=== PATIENT | female | born 1960 | race Two or more races ===

== ENCOUNTER 2025-01-01 21:28 | Inpatient (IN) | payer MEDICAID, MEDICARE ==
[~2025-01-01] VITALS: Ht 152.4 cm; Wt 71.7 kg
[2025-01-01] MEDS: IV NORMAL SALINE 1000 ML BAG IV ONE (23:00)
[2025-01-01 23:15] LABS: BASOPHILS % (AUTO) 0.4 % (0.0-2.0); EOSINOPHILS % (AUTO) 0.9 % (0.0-7.0); HEMOGLOBIN 11.5 g/dL (10.9-14.3); LYMPHOCYTES # (AUTO) 1.6 K/uL (0.8-4.8); LYMPHOCYTES % (AUTO) 27.4 % (20.5-51.5); MEAN CORPUSCULAR HEMOGLOBIN 34.2 uug (24.7-32.8); MEAN CORPUSCULAR HGB CONC 34 g/dL (32.3-35.6); MEAN CORPUSCULAR VOLUME 101.3 fL (75.5-95.3); MONOCYTES # (AUTO) 0.7 K/uL (0.1-1.30); MONOCYTES % (AUTO) 12.1 % (0.0-11.0); NEUTROPHILS # (AUTO) 3.4 K/uL (1.8-8.9); NEUTROPHILS % (AUTO) 59.2 % (38.5-71.5); PLATELET COUNT (AUTO) 272 K/uL (179-408); RED BLOOD CELL COUNT(AUTO) 3.36 MIL/uL (3.63-4.92); RED CELL DISTRIBUTION WIDTH 13.6 % (12.3-17.7); WHITE BLOOD COUNT (AUTO) 5.7 K/uL (3.8-11.8)
[2025-01-01 23:17] LABS: DIFFERENTIAL COMMENT 1
[2025-01-01] MEDS ORDERED: ACETAMINOPHEN 325 MG TABLET PO PRN (23:30)
[2025-01-01] MEDS ORDERED: MAGNESIUM HYDROXIDE 30 ML LIQUID UDC PO PRN (23:30)
[2025-01-01] MEDS ORDERED: REMEDY ESSENTIAL ZINC PASTE 113 GM TP PRN (23:30)
[2025-01-01] MEDS ORDERED: ONDANSETRON 4 MG/2 ML VIAL IV PRN (23:30)
[2025-01-01 23:38] LABS: CALCIUM 9.2 mg/dL (8.5-10.1); CARBON DIOXIDE 28 mmol/L (21-32); CHLORIDE 108 mmol/L (98-107); GLUCOSE 106 mg/dL (74-106); POTASSIUM 3.8 mmol/L (3.5-5.1); SODIUM SERUM 146 mmol/L (136-145); UREA NITROGEN, BLOOD 19 mg/dL (7-18)
[2025-01-01 23:46] LABS: ACETAMINOPHEN < 10.0 ug/mL (10-30); ALANINE AMINOTRANSFERASE 23 U/L (14-59); ALBUMIN 3.7 g/dL (3.4-5.0); ALKALINE PHOSPHATASE 79 U/L (50-136); ASPARTATE AMINOTRANSFERASE 17 U/L (15-37); BILIRUBIN,DIRECT 0.1 mg/dL (0.0-0.2); BILIRUBIN,TOTAL 0.4 mg/dL (0.2-1.0); TOTAL PROTEIN, SERUM 7.8 g/dL (6.4-8.2)
[2025-01-01 23:51] LABS: THYROID STIMULATING HORMONE 14.658 mIU/mL (0.358-3.740)
[2025-01-01 23:54] LABS: ETHANOL < 3 MG/DL (0-10)
[2025-01-02 00:07] LABS: *BILIRUBIN,URIN NEGATIVE (NEGATIVE); *BLOOD, URINE TRACE (NEGATIVE); *CLARITY,URINE CLEAR (CLEAR); *COLOR,URINE YELLOW (YELLOW); *KETONES,URINE NEGATIVE (NEGATIVE); *PROTEIN,URINE NEGATIVE (NEGATIVE); *UROBILINOGEN,URINE 0.2 E.U./dl (NORMAL); LEUKOCYTE ESTERASE ,URINE NEGATIVE (NEGATIVE); NITRITE, URINE NEGATIVE (NEGATIVE); UGLUCOSE NEGATIVE (NEGATIVE)
[2025-01-02 00:14] LABS: *AMPHETAMINE, URINE NEGATIVE (NEGATIVE); *BARBITURATE, URINE NEGATIVE (NEGATIVE); *BENZODIAZEPINE, URINE NEGATIVE (NEGATIVE); *CANNABINOID, URINE NEGATIVE (NEGATIVE); *COCCAINE, URINE NEGATIVE (NEGATIVE); *OPIATE, URINE NEGATIVE (NEGATIVE); *PHENCYCLIDINE SCREEN,URINE NEGATIVE (NEGATIVE); FENTANYL, URINE NEGATIVE (NEGATIVE)
[2025-01-02 00:51] LABS: BACTERIA,URINE NONE SEEN /HPF (NONE SEEN); RBC,URINE 0-3 /HPF (0-3); SQUAMOUS EPITHELIAL CELL,UR FEW /HPF (NONE SEEN); WBC,URINE NONE SEEN /HPF (0-3)
[2025-01-02 03:41] VITALS: BP 162/65; TEMP 98.2; O2SAT 95
[2025-01-02] MEDS ORDERED: ATOR10TA PO (04:21)
[2025-01-02] MEDS ORDERED: DOLU50TA PO (04:21)
[2025-01-02] MEDS ORDERED: FERR325T28 PO (04:21)
[2025-01-02] MEDS ORDERED: BISA10SU61 RC (04:21)
[2025-01-02] MEDS ORDERED: ERGO500040 PO (04:21)
[2025-01-02] MEDS ORDERED: MULT-213 PO (04:21)
[2025-01-02] MEDS ORDERED: MAGN400O6 PO (04:21)
[2025-01-02] MEDS ORDERED: ACET325T53 PO ×2 (04:21)
[2025-01-02] MEDS ORDERED: NA P133E RC (04:21)
[2025-01-02] MEDS ORDERED: CRAN450T9 PO (04:21)
[2025-01-02] MEDS ORDERED: OLAN15TA3 PO (04:21)
[2025-01-02 05:54] VITALS: BP 151/74; TEMP 98.4; O2SAT 95
[2025-01-02 08:15] LABS: MAGNESIUM 2.1 mg/dL (1.8-2.4); PHOSPHOROUS 2.4 mg/dL (2.5-4.9)
[2025-01-02 09:03] VITALS: BP 143/77; TEMP 98.2; O2SAT 96
[2025-01-02] MEDS ORDERED: MAGNESIUM HYDROXIDE 30 ML LIQUID UDC PO PRN (09:15)
[2025-01-02] MEDS ORDERED: FLEET ENEMA 133 ML BOTTLE RC PRN (09:15)
[2025-01-02] MEDS ORDERED: ACETAMINOPHEN 325 MG TABLET-SA PATIENTS-PAIN ONLY PO PRN ×2 (09:15)
[2025-01-02] MEDS ORDERED: BISACODYL 10 MG SUPP.RECT RC PRN (09:15)
[2025-01-02] MEDS ORDERED: EMTR1TAB13 PO (09:47)
[2025-01-02 11:46] VITALS: BP 141/85; TEMP 98.2; O2SAT 96
[2025-01-02] MEDS: NEUTRA PHOS PACKET PO ONE (17:40)
[2025-01-02] MEDS: TIVICAY 50 MG PO SCH (17:40)
[2025-01-02] MEDS: [UNRECOGNIZED DRUG - OTHER] PO SCH (17:40)
[2025-01-02] MEDS: [UNRECOGNIZED DRUG - OTHER] PO SCH (17:41)
[2025-01-02] MEDS: TENOFOVIR ALAFENAMIDE PO SCH (17:41)
[2025-01-02] MEDS: EMTRICITABINE PO SCH (17:41)
[2025-01-02 18:26] VITALS: BP 148/66; TEMP 98.4; O2SAT 96
[2025-01-02 19:20] VITALS: BP 117/66; TEMP 98.3; O2SAT 91
[2025-01-02] MEDS ORDERED: OLANZAPINE PO SCH (21:00)
[2025-01-02] MEDS: OLANZAPINE 5 MG TABLET PO SCH (21:12)
[2025-01-03 00:33] VITALS: BP 114/66; TEMP 98.4; O2SAT 95
[2025-01-03 05:28] VITALS: BP 148/73; TEMP 98.3; O2SAT 94
[2025-01-03 05:43] LABS: CALCIUM 9.1 mg/dL (8.5-10.1); PHOSPHOROUS 3.9 mg/dL (2.5-4.9)
[2025-01-03 07:31] VITALS: BP 121/69; TEMP 98.3; O2SAT 95
[2025-01-03] MEDS: FERROUS SULFATE 325 MG TABEC PO SCH (08:17)
[2025-01-03] MEDS ORDERED: DOLUTEGRAVIR SODIUM PO SCH (09:00)
[2025-01-03 11:31] VITALS: BP 132/77; TEMP 98.6; O2SAT 94
[2025-01-03 15:35] VITALS: BP 125/66; TEMP 98.1; O2SAT 94
[2025-01-03 21:30] VITALS: BP 106/73; TEMP 98; O2SAT 95
[2025-01-04 00:36] VITALS: TEMP 98
[2025-01-04 03:58] VITALS: TEMP 98.6
[2025-01-04 07:39] VITALS: BP 130/73; TEMP 99.2; O2SAT 95
[2025-01-04 11:54] VITALS: BP 123/72; TEMP 99; O2SAT 94
[2025-01-04 15:18] VITALS: BP 133/70; TEMP 99.1; O2SAT 95
[2025-01-04 19:30] VITALS: BP 123/69; TEMP 98.6; O2SAT 94
[2025-01-05 11:13] VITALS: BP 123/79; TEMP 99.2; O2SAT 92
[2025-01-05 15:20] VITALS: BP 128/72; TEMP 98.5; O2SAT 94
== END 2025-01-05 16:32 | DRG 640 ==
LOC: ER 21:53 → TELE-TD3 01-02 02:37 → MEDSURG3 01-02 07:15 → TELE3 01-02 17:15 → MEDSURG3 01-04 10:33
PROVIDERS: ADMIT Internal Medicine; ATTEND Internal Medicine
DX: E86.0 Dehydration (principal); G93.41 Metabolic encephalopathy; E87.1 Hypo-osmolality and hyponatremia; F20.9 Schizophrenia, unspecified; E78.5 Hyperlipidemia, unspecified; M47.892 Other spondylosis, cervical region; R79.89 Other specified abnormal findings of blood chemistry; M50.30 Other cervical disc degeneration, unspecified cervical region; E03.9 Hypothyroidism, unspecified; E86.1 Hypovolemia; D46.4 Refractory anemia, unspecified; Z88.8 Allergy status to other drugs, medicaments and biological substances; Z79.899 Other long term (current) drug therapy
CPT/HCPCS: 36415; 70450; 71045; 83735; 84100; 84443; 84484; 85025; A4663; G0378; G0480; J7040

== ENCOUNTER 2025-10-05 00:24 | Inpatient (IN) | payer MEDICARE, OTHER ==
[~2025-10-05] VITALS: Ht 149.9 cm; Wt 70.8 kg
[~2025-10-05 00:24] MED LIST: ACET-3752 PO; ATOR10TA PO; BISA10SU61 RC; CRAN450T9 PO; DOLU50TA PO; EMTR1TAB13 PO; ERGO125010 PO; FERR325T28 PO; MAGN400O6 PO; MULT-213 PO; NA P133E RC; OLAN15TA3 PO
[2025-10-05 01:22] VITALS: BP 147/77; TEMP 98.1; O2SAT 97
[2025-10-05] MEDS: BLOOD SUGAR DIAGNOSTIC 1 EACH STRIP VI ONE (01:29)
[2025-10-05] MEDS ORDERED: ACETAMINOPHEN 325 MG TABLET PO PRN (01:30)
[2025-10-05] MEDS ORDERED: MAG HYDROX/AL HYDROX/SIMETH 30 ML LIQUID UDC PO PRN (01:30)
[2025-10-05] MEDS ORDERED: LORAZEPAM 1 MG TABLET PO PRN (01:30)
[2025-10-05] MEDS ORDERED: MAGNESIUM HYDROXIDE 30 ML LIQUID UDC PO PRN ×2 (01:30→13:30)
[2025-10-05] MEDS ORDERED: ZOLPIDEM 5 MG TABLET PO PRN ×2 (01:30)
[2025-10-05 08:49] VITALS: BP 98/60; TEMP 98.1; O2SAT 97
[2025-10-05] MEDS: OLANZAPINE ZYDIS 5 MG TAB.RAPDIS PO SCH (09:00)
[2025-10-05] MEDS: DIVALPROEX SPRINKLE 125 MG CAP.SPRINK PO SCH (09:00)
[2025-10-05] MEDS ORDERED: ACETAMINOPHEN 325 MG TABLET-SA PATIENTS-PAIN ONLY PO PRN ×2 (13:30)
[2025-10-05] MEDS ORDERED: BISACODYL 10 MG SUPP.RECT RC PRN (13:30)
[2025-10-05] MEDS ORDERED: FLEET ENEMA 133 ML BOTTLE RC PRN (13:30)
[2025-10-05 16:32] VITALS: BP 112/77; TEMP 98.1; O2SAT 97
[2025-10-05 19:58] VITALS: BP 103/49; TEMP 98.3; O2SAT 93
[2025-10-05] MEDS: ATORVASTATIN 10 MG TABLET PO SCH (21:00)
[2025-10-06 07:46] VITALS: BP 122/68; TEMP 98.4; O2SAT 95
[2025-10-06 07:58] LABS: PLATELET COUNT (AUTO) 298 K/uL (179-408); RED BLOOD CELL COUNT(AUTO) 3.41 MIL/uL (3.63-4.92); RED CELL DISTRIBUTION WIDTH 13.8 % (12.3-17.7); WHITE BLOOD COUNT (AUTO) 4.6 K/uL (3.8-11.8)
[2025-10-06 08:31] LABS: CREATININE 1.1 mg/dL (0.6-1.3); GLUCOSE FASTING 93.0 mg/dL (70-115); SODIUM SERUM 141.0 mmol/L (136-145); UREA NITROGEN, BLOOD 22.0 mg/dL (7-18)
[2025-10-06] MEDS: MULTIVIT, IRON, MIN NO. 8, FA TABLET PO SCH (08:50)
[2025-10-06] MEDS: FERROUS SULFATE 325 MG TABEC PO SCH (08:50)
[2025-10-06] MEDS ORDERED: Medication Not On Formulary EA (Multivitamins W-Minerals (Multivitamin With Minerals) 1 PO SCH (09:00)
[2025-10-06 16:48] VITALS: BP 130/81; TEMP 98.7; O2SAT 96
[2025-10-06 19:47] VITALS: BP 135/73; TEMP 98.2; O2SAT 94
[2025-10-07 08:15] VITALS: BP 110/70; TEMP 98; O2SAT 94
[2025-10-07 15:09] VITALS: BP 144/77; TEMP 98; O2SAT 99
[2025-10-07 20:00] VITALS: BP 142/69; TEMP 98.3; O2SAT 95
[2025-10-08] MEDS: LORAZEPAM 1 MG TABLET PO PRN (04:39)
[2025-10-08 09:14] VITALS: BP 131/68; TEMP 98; O2SAT 99
[2025-10-08 15:11] VITALS: BP 144/68; TEMP 98; O2SAT 99
[2025-10-08 20:18] VITALS: BP 130/69; TEMP 98.1; O2SAT 96
[2025-10-09 08:12] VITALS: BP 148/75; TEMP 98; O2SAT 98
[2025-10-09] MEDS: OLANZAPINE 10 MG VIAL IM ONE (08:19)
[2025-10-09 15:42] VITALS: BP 148/95; TEMP 98; O2SAT 98
[2025-10-09 19:55] VITALS: BP 150/83; TEMP 98.1; O2SAT 98
[2025-10-09 19:58] VITALS: BP 129/66; TEMP 98.1; O2SAT 98
[2025-10-10 08:14] VITALS: BP 136/61; TEMP 98.1; O2SAT 98
[2025-10-10] MEDS ORDERED: OLANZAPINE ZYDIS 5 MG TAB.RAPDIS PO SCH (09:00)
[2025-10-10] MEDS: OLANZAPINE ZYDIS 5 MG TAB.RAPDIS PO SCH (12:11)
[2025-10-10 16:31] VITALS: BP 135/99; TEMP 98; O2SAT 98
[2025-10-10 20:16] VITALS: BP 132/67; TEMP 98.4; O2SAT 93
[2025-10-11 08:23] VITALS: BP 134/60; TEMP 98.1; O2SAT 98
[2025-10-11 16:22] VITALS: BP 130/57; TEMP 98; O2SAT 98
[2025-10-11 20:01] VITALS: BP 143/76; TEMP 98.3; O2SAT 95
[2025-10-12 08:44] VITALS: BP 135/75; TEMP 98.1; O2SAT 98
[2025-10-12 16:29] VITALS: BP 128/67; TEMP 98; O2SAT 98
[2025-10-12] MEDS: ENSURE ENLIVE (VAN) 240 ML LIQUID PO SCH (16:49)
[2025-10-12 20:01] VITALS: BP 136/64; TEMP 97.9; O2SAT 96
[2025-10-13 07:49] VITALS: BP 139/71; TEMP 98.3; O2SAT 91
[2025-10-13 16:38] VITALS: BP 131/74; TEMP 98.5; O2SAT 94
== END 2025-10-13 16:45 | DRG 885 ==
LOC: GPS 00:52
PROVIDERS: ADMIT Psychiatry & Neurology Psychiatry; ATTEND Student in an Organized Health Care Education/Training Program
DX: F20.0 Paranoid schizophrenia (principal); R45.6 Violent behavior; E66.9 Obesity, unspecified; E86.0 Dehydration; M50.30 Other cervical disc degeneration, unspecified cervical region; Z71.3 Dietary counseling and surveillance; Z68.31 Body mass index [BMI] 31.0-31.9, adult; Z88.8 Allergy status to other drugs, medicaments and biological substances; R79.89 Other specified abnormal findings of blood chemistry; Z79.899 Other long term (current) drug therapy
CPT/HCPCS: 36415; 83735; 84100; 84443; 85025; J2358